=== PATIENT | male | born 1995 | race Caucasian/White ===

== ENCOUNTER 2018-10-22 10:00 | Day surgery (SDC) | payer OTHER ==
[2018-10-22] MEDS ORDERED: ROCURONIUM BROMIDE 50 MG/5 ML VIAL As Ordered (10:19)
[2018-10-22] MEDS ORDERED: ONDANSETRON 4MG/2ML VIAL (J2405) As Ordered (10:19)
[2018-10-22] MEDS ORDERED: NEOSTIGMINE 10 MG/10 ML VIAL (J2710) As Ordered (10:19)
[2018-10-22] MEDS ORDERED: dexameTHASONE 4 MG/ML 1ML VIAL (J1100) As Ordered (10:19)
[2018-10-22] MEDS ORDERED: LIDOCAINE 2% INJ 100 MG/5 ML SDV (FOR ANES.) As Ordered (10:19)
[2018-10-22] MEDS ORDERED: MIDAZOLAM INJ 2 MG/2 ML VIAL (J2250) As Ordered (10:19)
[2018-10-22] MEDS ORDERED: PROPOFOL 200 MG/20 ML VIAL As Ordered (10:19)
[2018-10-22] MEDS ORDERED: fentaNYL 100 MCG/2 ML INJECTION (J3010) As Ordered ×2 (10:19→11:46)
[2018-10-22] MEDS ORDERED: GLYCOPYRROLATE INJ 0.2 MG/ML 2 ML VIAL As Ordered (10:19)
[2018-10-22] MEDS: LIDOCAINE 1% MDV 20ML VIAL As Ordered (11:50)
[2018-10-22] MEDS: BUPIVACAINE HCL 0.25% 30 ML VIAL As Ordered (11:50)
[2018-10-22] MEDS ORDERED: fentaNYL 100 MCG/2 ML INJECTION (J3010) IV (12:15)
[2018-10-22] MEDS ORDERED: ONDANSETRON 4MG/2ML VIAL (J2405) IV (12:15)
[2018-10-22] MEDS: HYDROcodone/APAP LIQUID 7.5-325MG 15ML UDC (LORTAB ELIXIR) PO (12:22)
== END 2018-10-22 13:40 | disposition home or self-care (01) ==
LOC: M SDC 10:00
DX: J35.01 Chronic tonsillitis (principal); R06.83 Snoring; Z88.0 Allergy status to penicillin
CPT/HCPCS: 42826

== ENCOUNTER 2018-10-24 21:46 | Emergency (ER) | payer OTHER ==
[2018-10-24] MEDS: NS 1,000 ML IV (22:05)
[2018-10-24 22:15] LABS: BASO % 0.2 % (0.0-1.0); EOS % 0.3 % (0.0-3.0); IMMATURE GRANULOCYTE % 0.5 % (0-3.0); LYMPH # 2.1 10^3/uL (1.5-6.5); LYMPH % 13.3 % (24.0-44.0); MEAN CORPUSCULAR HEMOGLOBIN 30.6 pg (27.0-33.0); MEAN CORPUSCULAR HGB CONC 33.3 g/dl (32.0-36.5); MEAN CORPUSCULAR VOLUME 91.9 fl (80.0-96.0); MONO # 1.9 10^3/uL (0.0-0.8); MONO % 12.1 % (0.0-5.0); NEUTROPHILS # 11.5 10^3/uL (1.8-7.7); NEUTROPHILS % 73.6 % (36.0-66.0); PLATELET COUNT, AUTOMATED 211 10^3/uL (150-450); RED BLOOD COUNT 4.57 10^6/uL (4.30-6.10); RED CELL DISTRIBUTION WIDTH 12.3 % (11.5-14.5); WHITE BLOOD COUNT 15.6 10^3/uL (4.0-10.0)
[2018-10-24] MEDS: methylPREDNISolone INJ 125 MG/2 ML VIAL (J2930) IV (22:19)
[2018-10-24] MEDS: MORPHINE 2 MG/ML 1ML SYRINGE (J2270) IV (22:21)
[2018-10-24] MEDS: diphenhydrAMINE INJ 50MG/ML VIAL (J1200) IV (22:21)
[2018-10-24 22:36] LABS: ANION GAP 10 MEQ/L (8-16); BLOOD UREA NITROGEN 7 MG/DL (7-18); CALCIUM LEVEL 8.5 MG/DL (8.5-10.1); CARBON DIOXIDE LEVEL 29 MEQ/L (21-32); CHLORIDE LEVEL 101 MEQ/L (98-107); CREATININE FOR GFR 0.89 MG/DL (0.70-1.30); GLOMERULAR FILTRATION RATE > 60.0 (>60); GLUCOSE, FASTING 89 MG/DL (70-100); POTASSIUM SERUM 3.8 MEQ/L (3.5-5.1); SODIUM LEVEL 140 MEQ/L (136-145)
[2018-10-24] MEDS ORDERED: ISOVUE-370 76% 100ML VIAL (Q9967) As Ordered (22:42)
== END 2018-10-25 01:50 | disposition home or self-care (01) ==
LOC: M ED 10-25 01:50
DX: R22.0 Localized swelling, mass and lump, head (principal); Z98.890 Other specified postprocedural states; Z88.0 Allergy status to penicillin; Z88.5 Allergy status to narcotic agent; Z79.899 Other long term (current) drug therapy
CPT/HCPCS: J1200

== ENCOUNTER 2018-10-28 21:58 | Emergency (ER) | payer OTHER | END 2018-10-28 22:55 | disposition home or self-care (01) | LOC: M ED 21:58 | DX: J95.830 Postprocedural hemorrhage of a respiratory system organ or structure following a respiratory system procedure (principal); Z98.890 Other specified postprocedural states | CPT/HCPCS: 99282 ==